=== PATIENT | female | born 1975 | race Native Hawaiian/Other Pacific Islander ===

== ENCOUNTER 2016-10-22 06:05 | Outpatient (CLI) | payer OTHER ==
[~2016-10-22 06:05] MED LIST: AMBIEN5 MG PO; BUPROPN HCL300 MG PO; CLARITIN10 MG PO; CLONIDINE0.1 MG PO; CLOP75TA2 PO; DULOXETINE HCL60 MG PO; EZET10TA13 PO; FLUOXETINE20 M2 PO; FURO20TA67 PO; HYDROXYZ HCL50 MG PO; KLOR-CON 1010 MEQ OR; LIPITOR40 MG PO; LISI20TA11 PO; LYRICA150 MG PO; PROMETHAZINE25 M1 PO; RANITIDINE 150150 MG PO; ROPINIROLE0.25 MG PO; TORSEMIDE20 MG OR; VERA240T17 PO
[2016-10-22 06:53] LABS: PLATELET COUNT 362 K/uL (152-353)
[2016-10-22 07:08] LABS: POTASSIUM 5.4 mmol/L (3.6-5.2)
== END 2016-10-22 19:17 | disposition home or self-care (01) ==
LOC: LABW 06:05
PROVIDERS: Family Medicine
DX: E10.9 Type 1 diabetes mellitus without complications (principal); E03.8 Other specified hypothyroidism; E78.4 Other hyperlipidemia; E66.8 Other obesity; I10 Essential (primary) hypertension; N18.4 Chronic kidney disease, stage 4 (severe)
CPT/HCPCS: 36415; 80053; 80061; 82043; 82570; 82652; 83036; 83735; 84439; 84443; 84550; 85027

== ENCOUNTER 2016-11-11 04:43 | Emergency (ER) | payer OTHER ==
[~2016-11-11] VITALS: Ht 162.6 cm; Wt 101.6 kg
[2016-11-11 04:58] VITALS: TEMP 97.9
[2016-11-11 06:13] LABS: PLATELET COUNT 344 K/uL (152-353)
[2016-11-11 07:50] VITALS: BP 186/77
== END 2016-11-11 07:50 | disposition home or self-care (01) ==
LOC: ED 04:43
DX: E11.65 Type 2 diabetes mellitus with hyperglycemia (principal); N18.9 Chronic kidney disease, unspecified; R80.9 Proteinuria, unspecified; R19.09 Other intra-abdominal and pelvic swelling, mass and lump
CPT/HCPCS: 36415; 80053; 81000; 83036; 85027; 96361; 96365; 96375; 99284; J1815; J1885

== ENCOUNTER 2016-11-27 15:55 | Emergency (ER) | payer OTHER ==
[~2016-11-27] VITALS: Ht 162.6 cm; Wt 102.1 kg
[2016-11-27 16:01] VITALS: TEMP 98.9
[2016-11-27 18:33] VITALS: BP 133/74
== END 2016-11-27 18:30 | disposition home or self-care (01) ==
LOC: ED 15:55
DX: I10 Essential (primary) hypertension (principal); S29.011A Strain of muscle and tendon of front wall of thorax, initial encounter
CPT/HCPCS: 96374; 99284; J3490